=== PATIENT | female | born 1945 | race African-American/Black ===

== ENCOUNTER 2019-12-08 11:58 | Emergency (ER) | payer OTHER ==
[~2019-12-08] VITALS: Ht 165.1 cm; Wt 118.1 kg
--- NOTE | 2019-12-08 12:15 | PHYS DOC ---
Adult General Chief Complaint Chief Complaint: HEADACHE HPI HPI Patient is a 74 year old female who reports with complaint of neck stiffness and a headache that goes up the back of her head to the front and has a sensation of fullness that is been ongoing for the past 2 days. Patient voices history of migraine headaches with similar presentation. No numbness tingling or weakness that is localized. No difficulty with vision or speech. No medications taken prior to arrival. Her symptoms are described as moderate in severity. Of note when the patient talks to me she is moving her neck and what appears to be a normal fashion. Review of Systems Review of Systems All other systems were reviewed and found to be within normal limits, except as documented in this note. Current Medications Current Medications Current Medications Medications (Trade) Dose Ordered Sig/Mariah Start Time Stop Time Status Last Admin Dose Admin Methylprednisolone Sodium Succinate (SOLU-Medrol 125MG VIAL) 125 mg STK-MED ONCE 12/08/19 12:23 12/08/19 12:23 DC Orphenadrine Citrate (Norflex) 60 mg STK-MED ONCE 12/08/19 12:23 12/08/19 12:23 DC Allergies Allergies Allergies Coded Allergies Type Severity Reaction Last Updated Verified No Known Drug Allergies 12/08/19 No Physical Exam Physical Exam Constitutional: Well developed, morbidly obese, no acute distress HENT: Normocephalic, atraumatic, bilateral external ears normal, oropharynx moist, no oral exudates, nose normal. [] Eyes: PERRLA, EOMI, conjunctiva normal, no discharge. [] Neck: No significant tenderness, range of motion appears to be preserved Cardiovascular:Heart rate regular rhythm, no murmur [] Lungs & Thorax: Bilateral breath sounds clear to auscultation [] Abdomen: Bowel sounds normal, soft, no tenderness, no masses, no pulsatile masses. [] Skin: Warm, dry, no erythema, no rash. [] Back: No tenderness, no CVA tenderness. [] Extremities: No tenderness, no cyanosis, no clubbing, ROM intact, no edema. [] Neurologic: Alert and oriented X 3, normal motor function, normal sensory function, no focal deficits noted. [] Current Patient Data Vital Signs Vital Signs Date Time Temp Pulse Resp B/P (MAP) Pulse Ox O2 Delivery O2 Flow Rate FiO2 12/08/19 12:05 98.0 75 18 166/76 (106) 98 Room Air 98.0 EKG EKG [] Radiology/Procedures Radiology/Procedures [] Course & Med Decision Making Course & Med Decision Making Pertinent Labs and Imaging studies reviewed. (See chart for details) 1215: Patient seen for neck pain and headache. Symptoms appear to be consistent with tension migraine so we will start with IM Norflex and Solu-Medrol. 1304: Patient feeling better. Will d/c with flexeril at [facility]. Dragon Disclaimer Dragon Disclaimer This electronic medical record was generated, in whole or in part, using a voice recognition dictation system. Departure Departure Impression: Primary Impression: Tension headache Disposition: HOME, SELF-CARE Condition: IMPROVED Referrals: MILIND RIVERO MD (PCP) Please follow up for ongoing symptoms. Patient Instructions: Tension Headache Scripts Cyclobenzaprine Hcl (CYCLOBENZAPRINE HCL) 10 Mg Tablet 1 TAB PO HS, #10 TAB Prov: YSABEL ALICIA DO 12/08/19 YSABEL ALICIA DO Dec 08, 2019 12:15
[2019-12-08] MEDS ORDERED: methylPREDNISolone SOD SUCC PF 125 MG/2 ML VIAL. ONE (12:23)
[2019-12-08] MEDS ORDERED: ORPHENADRINE CITRATE 60 MG/2 ML VIAL. ONE (12:23)
[2019-12-08] MEDS: methylPREDNISolone SOD SUCC PF 125 MG/2 ML VIAL. IM ONE (12:28)
[2019-12-08] MEDS: ORPHENADRINE CITRATE 60 MG/2 ML VIAL. IM ONE (12:28)
[2019-12-08] MEDS ORDERED: CYCL10TA2 PO (13:06)
[2019-12-08 13:15] VITALS: BP 161/72
== END 2019-12-08 13:20 | disposition home or self-care (01) ==
LOC: ER 11:58
DX: G44.209 Tension-type headache, unspecified, not intractable (principal); G43.909 Migraine, unspecified, not intractable, without status migrainosus; M54.2 Cervicalgia
CPT/HCPCS: 96372; 99284; J2360; J2930

== ENCOUNTER 2019-12-10 09:49 | Emergency (ER) | payer OTHER ==
[~2019-12-10] VITALS: Ht 165.1 cm; Wt 118.0 kg
[~2019-12-10 09:49] MED LIST: CYCL10TA2 PO
[2019-12-10] MEDS ORDERED: diphenhydrAMINE 50 MG/ML VIAL IVP ONE (10:30)
[2019-12-10] MEDS ORDERED: ORPHENADRINE CITRATE 60 MG/2 ML VIAL. IV ONE (10:30)
--- NOTE | 2019-12-10 10:43 | PHYS DOC ---
Past Medical History Past Medical History: High Cholesterol, Hypertension, Migraines, Other Additional Past Medical Histor: Patient is poor historian Past Surgical History: Gastric Bypass, Hip Replacement, Hysterectomy Smoking Status: Never Smoker Alcohol Use: None Adult General Chief Complaint Chief Complaint: HEADACHE HPI HPI Patient is a 74 year old female with history of hypertension, dyslipidemia, migraine headache, gastric bypass, morbid obesity who presents with complaint of headache. Patient complaining of right-sided neck pain with radiation to shoulder and head for the last 4 days as a constant and throbbing pain that getting worse with movement. Patient denies head injury and history of the same problem. Patient was seen in this emergency room on December 07 and treated with diagnosis of tension headache with partial improvement of her condition. Patient denies focal neuro deficit, fever and chills, chest pain, shortness of breath, blurred vision, nausea and vomiting. Patient rated her pain 10/10 and looks very uncomfortable. Review of Systems Review of Systems Constitutional: Denies fever or chills [] Eyes: Denies change in visual acuity, redness, or eye pain [] HENT: Denies nasal congestion or sore throat [] Respiratory: Denies cough or shortness of breath [] Cardiovascular: No additional information not addressed in HPI [] GI: Denies abdominal pain, nausea, vomiting, bloody stools or diarrhea [] : Denies dysuria or hematuria [] Musculoskeletal: Denies back pain or joint pain [] Integument: Denies rash or skin lesions [] Neurologic: Reports headache and neck pain, denies focal weakness or sensory changes [] Endocrine: Denies polyuria or polydipsia [] All other systems were reviewed and found to be within normal limits, except as documented in this note. Current Medications Current Medications Current Medications Medications (Trade) Dose Ordered Sig/Mariah Start Time Stop Time Status Last Admin Dose Admin Diphenhydramine HCl (Benadryl) 50 mg 1X ONCE 12/10/19 10:30 12/10/19 10:31 DC 12/10/19 11:51 50 MG Fentanyl Citrate (Fentanyl 2ml Vial) 50 mcg 1X ONCE 12/10/19 12:45 12/10/19 12:46 DC Ketorolac Tromethamine (Toradol 30mg Vial) 30 mg 1X ONCE 12/10/19 13:15 12/10/19 13:16 DC 12/10/19 13:15 30 MG Orphenadrine Citrate (Norflex) 60 mg 1X ONCE 12/10/19 10:30 12/10/19 10:31 DC 12/10/19 11:50 60 MG Allergies Allergies Allergies Coded Allergies Type Severity Reaction Last Updated Verified No Known Drug Allergies 12/08/19 No Physical Exam Physical Exam Constitutional: Well developed, well nourished, moderate distress, non-toxic appearance. [] HENT: Normocephalic, atraumatic. Eyes: PERRLA, EOMI, conjunctiva normal, no discharge. [] Neck: No midline tenderness, painful range of motion especially in the right side, muscle spasm right paracervical muscle, supple, no meningeal sign, no stridor. [] Cardiovascular:Heart rate regular rhythm, no murmur [] Lungs & Thorax: Bilateral breath sounds clear to auscultation [] Abdomen: Bowel sounds normal, soft, no tenderness, no masses, no pulsatile masses. [] Skin: Warm, dry, no erythema, no rash. [] Back: No tenderness, no CVA tenderness. [] Extremities: No tenderness, no cyanosis, no clubbing, ROM intact, no edema. [] Neurologic: Alert and oriented X 3, no focal deficits noted. [] Psychologic: Affect normal, judgement normal, mood normal. [] Current Patient Data Vital Signs Vital Signs Date Time Temp Pulse Resp B/P (MAP) Pulse Ox O2 Delivery O2 Flow Rate FiO2 12/10/19 13:00 64 17 89 12/10/19 10:16 98.6 179/77 (111) Room Air 98.6 Lab Values Laboratory Tests Test 12/10/19 11:40 12/10/19 12:05 White Blood Count 9.4 x10^3/uL (4.0-11.0) Red Blood Count 2.85 x10^6/uL (3.50-5.40) L Hemoglobin 8.9 g/dL (12.0-15.5) L Hematocrit 27.5 % (36.0-47.0) L Mean Corpuscular Volume 97 fL (79-100) Mean Corpuscular Hemoglobin 31 pg (25-35) Mean Corpuscular Hemoglobin Concent 33 g/dL (31-37) Red Cell Distribution Width 16.3 % (11.5-14.5) H Platelet Count 476 x10^3/uL (140-400) H Neutrophils (%) (Auto) 77 % (31-73) H Lymphocytes (%) (Auto) 16 % (24-48) L Monocytes (%) (Auto) 5 % (0-9) Eosinophils (%) (Auto) 2 % (0-3) Basophils (%) (Auto) 0 % (0-3) Neutrophils # (Auto) 7.2 x10^3/uL (1.8-7.7) Lymphocytes # (Auto) 1.5 x10^3/uL (1.0-4.8) Monocytes # (Auto) 0.5 x10^3/uL (0.0-1.1) Eosinophils # (Auto) 0.1 x10^3/uL (0.0-0.7) Basophils # (Auto) 0.0 x10^3/uL (0.0-0.2) Sodium Level 144 mmol/L (136-145) Potassium Level 3.9 mmol/L (3.5-5.1) Chloride Level 107 mmol/L (98-107) Carbon Dioxide Level 27 mmol/L (21-32) Anion Gap 10 (6-14) Blood Urea Nitrogen 13 mg/dL (7-20) Creatinine 1.0 mg/dL (0.6-1.0) Estimated GFR (Cockcroft-Gault) 65.9 BUN/Creatinine Ratio 13 (6-20) Glucose Level 84 mg/dL (70-99) Calcium Level 9.6 mg/dL (8.5-10.1) Total Bilirubin 0.3 mg/dL (0.2-1.0) Aspartate Amino Transferase (AST) 17 U/L (15-37) Alanine Aminotransferase (ALT) 16 U/L (14-59) Alkaline Phosphatase 108 U/L (46-116) Total Protein 7.4 g/dL (6.4-8.2) Albumin 2.5 g/dL (3.4-5.0) L Albumin/Globulin Ratio 0.5 (1.0-1.7) L Prothrombin Time 15.8 SEC (11.7-14.0) H Prothrombin Time INR 1.3 (0.8-1.1) H Activated Partial Thromboplast Time 39 SEC (24-38) H Lactic Acid Level 0.8 mmol/L (0.4-2.0) Laboratory Tests 12/10/19 11:40 Laboratory Tests 12/10/19 11:40 EKG EKG [] Radiology/Procedures Radiology/Procedures [facility] [address] [place] [address] IMAGING REPORT Signed PATIENT: SKYE MACIEL ACCOUNT: [id number] : 1945 LOCATION: ER AGE: 74 SEX: F EXAM STATUS: REG ER ORD. PHYSICIAN: ALEX MYLES MD REASON: Headache and neck pain PROCEDURE: CT HEAD AND CERVICAL SPINE WO Examination: CT HEAD AND CERVICAL SPINE WO History: Headache and neck pain Comparison/Correlation: 02/04/2005 cervical spine x-ray exam Findings: Axial images of the head and cervical spine were obtained without contrast. Sagittal and coronal reformatted images were provided. Ventricles are normal size. Mild chronic ischemic change of the white matter is present. No midline shift or mass effect. No intracranial hemorrhage. Osteochondromas of the frontal bone are present with no suspicious features. Atlantoaxial joint degenerative remodeling is notable. Reversal of cervical lordosis at C4-5 is notable and appears related to degenerative change. This finding is new since the 2004 x-ray exam. Bony encroachment on neural foramina bilaterally at C4-5 noted with severe narrowing on the left. Bony encroachment is significant bilaterally at C5-6. Multilevel moderate disc space narrowing is present from C5 to T1. Facet joint degenerative subchondral cystic involvement, sclerosis, and narrowing at the right C3-4 level is noted. Degenerative changes otherwise of the facet joints are of a lesser degree. No fracture or bone destruction. Soft tissues of the neck are unremarkable. Levo convexity of the cervical spine is mild. Impression: No intracranial hemorrhage or other suspicious intracranial process. Degenerative changes of the cervical spine of varying severity. Reversal of cervical spine lordosis at C4-5 is evident likely due to degenerative change. PQRS Compliance Statement: One or more of the following individualized dose reduction techniques were utilized for this examination: 1. Automated exposure control 2. Adjustment of the mA and/or kV according to patient size 3. Use of iterative reconstruction technique Electronically signed by: Roman Rose MD (12/10/2019 12:14 PM) [id number] DICTATED and SIGNED BY: ROMAN ROSE MD DATE: 12/10/19 1214 Course & Med Decision Making Course & Med Decision Making Pertinent Labs and Imaging studies reviewed. (See chart for details) Evaluation of patient in ER showed 74-year-old female with complaining of right- sided neck pain with radiation to her head and shoulder getting worse with movement of her head for the last 4 days and had another ER visit [address] head and neck was unremarkable and labs did not show leukocytosis or electrolyte problem. Patient had chronic anemia. Patient was advised to not apply heat on her neck and continue muscle relaxant was given 3 days ago. Patient was advised to hold on tramadol and prescription for [place] was given. Patient treated with Benadryl, Norflex and Toradol with improvement of her pain. I've spoken with the patient and/or caregivers. I've explained the patient's condition, diagnosis and treatment plan based on information available to me at this time. I've answered the patient's and/or caregivers questions and addressed any concerns. The patient and/or caregivers have a good understanding the patient's diagnosis, condition and treatment plan as can be expected at this point. Vital signs have been stabilized. The patient's condition is stable for discharge from the emergency department. The patient will pursue further outpatient evaluation with her primary care provider or other designated consulting physician as outlined in the discharge instructions. Patient and/or caregivers are agreeable to this plan of care and follow-up instructions have been explained in detail. The patient and/or caregivers have received these instructions in written format and expressed understanding of these discharge instructions. The patient and her caregivers are aware that if any significant change in condition or worsening of symptoms should prompt him to immediately return to this of the closest emergency department. If an emergent department is not readily available I would encourage him to call 911. Liliam Disclaimer Liliam Disclaimer This electronic medical record was generated, in whole or in part, using a voice recognition dictation system. Departure Departure Impression: Primary Impression: Acute cervical myofascial strain Additional Impressions: Chronic anemia Morbid obesity Disposition: HOME, SELF-CARE Condition: IMPROVED Referrals: UNKNOWN PCP NAME (PCP) Patient Instructions: Cervical Strain and Sprain with [facility] Additional Instructions: Apply ice on your neck, do not use heat Follow-up with your primary care physician in 2-3 days Return to ER if not getting better Continue home muscle relaxant Scripts Hydrocodone/Apap 5-325 (NORCO 5-325 TABLET) 1 Each Tablet 1 TAB PO PRN Q6HRS PRN for PAIN, #15 TAB 0 Refills Prov: ALEX MYLES MD 12/10/19 Problem Qualifiers Primary Impression: Acute cervical myofascial strain Encounter type: initial encounter Qualified Codes: S16.1XXA - Strain of m uscle, fascia and tendon at neck level, initial encounter ALEX MYLES MD Dec 10, 2019 10:42
[2019-12-10 11:53] LABS: BASO % 0 % (0-3); EOS # 0.1 x10^3/uL (0.0-0.7); EOS % 2 % (0-3); HEMATOCRIT 27.5 % (36.0-47.0); HEMOGLOBIN 8.9 g/dL (12.0-15.5); LYMPH # 1.5 x10^3/uL (1.0-4.8); LYMPH % 16 % (24-48); MEAN CORPUSCULAR HEMOGLOBIN 31 pg (25-35); MEAN CORPUSCULAR HGB CONC 33 g/dL (31-37); MEAN CORPUSCULAR VOLUME 97 fL (79-100); MONO # 0.5 x10^3/uL (0.0-1.1); MONO % 5 % (0-9); NEUT # 7.2 x10^3/uL (1.8-7.7); NEUT % 77 % (31-73); PLATELET COUNT 476 x10^3/uL (140-400); RED BLOOD COUNT 2.85 x10^6/uL (3.50-5.40); RED CELL DISTRIBUTION WIDTH 16.3 % (11.5-14.5); WHITE BLOOD COUNT 9.4 x10^3/uL (4.0-11.0)
[2019-12-10 12:04] LABS: CALCIUM 9.6 mg/dL (8.5-10.1); GFR 65.9; POTASSIUM 3.9 mmol/L (3.5-5.1)
[2019-12-10 12:09] LABS: ALBUMIN 2.5 g/dL (3.4-5.0); ALBUMIN/GLOBULIN RATIO 0.5 (1.0-1.7); TOTAL BILIRUBIN 0.3 mg/dL (0.2-1.0); TOTAL PROTEIN 7.4 g/dL (6.4-8.2)
--- NOTE | 2019-12-10 12:16 | RAD ---
Examination: CT HEAD AND CERVICAL SPINE WO History: Headache and neck pain Comparison/Correlation: 02/04/2005 cervical spine x-ray exam Findings: Axial images of the head and cervical spine were obtained without contrast. Sagittal and coronal reformatted images were provided. Ventricles are normal size. Mild chronic ischemic change of the white matter is present. No midline shift or mass effect. No intracranial hemorrhage. Osteochondromas of the frontal bone are present with no suspicious features. Atlantoaxial joint degenerative remodeling is notable. Reversal of cervical lordosis at C4-5 is notable and appears related to degenerative change. This finding is new since the 2004 x-ray exam. Bony encroachment on neural foramina bilaterally at C4-5 noted with severe narrowing on the left. Bony encroachment is significant bilaterally at C5-6. Multilevel moderate disc space narrowing is present from C5 to T1. Facet joint degenerative subchondral cystic involvement, sclerosis, and narrowing at the right C3-4 level is noted. Degenerative changes otherwise of the facet joints are of a lesser degree. No fracture or bone destruction. Soft tissues of the neck are unremarkable. Levo convexity of the cervical spine is mild. Impression: No intracranial hemorrhage or other suspicious intracranial process. Degenerative changes of the cervical spine of varying severity. Reversal of cervical spine lordosis at C4-5 is evident likely due to degenerative change. PQRS Compliance Statement: One or more of the following individualized dose reduction techniques were utilized for this examination: 1. Automated exposure control 2. Adjustment of the mA and/or kV according to patient size 3. Use of iterative reconstruction technique Electronically signed by: Roman Zamorano MD (12/10/2019 12:14 PM) [id number]
[2019-12-10 12:42] LABS: PROTHROMBIN TIME PATIENT 15.8 SEC (11.7-14.0)
[2019-12-10] MEDS ORDERED: fentaNYL PF VIAL 100 MCG/2 ML VIAL IVP ONE (12:45)
[2019-12-10 13:00] VITALS: BP 186/80
[2019-12-10] MEDS ORDERED: KETOROLAC 30 MG/ML VIAL. IVP ONE (13:15)
[2019-12-10] MEDS ORDERED: HYDR-3164 PO (13:16)
== END 2019-12-10 14:44 | disposition home or self-care (01) ==
LOC: ER 09:49
DX: S16.1XXA Strain of muscle, fascia and tendon at neck level, initial encounter (principal); D50.0 Iron deficiency anemia secondary to blood loss (chronic); E66.01 Morbid (severe) obesity due to excess calories; Z68.41 Body mass index [BMI] 40.0-44.9, adult; G43.909 Migraine, unspecified, not intractable, without status migrainosus; E78.00 Pure hypercholesterolemia, unspecified; I10 Essential (primary) hypertension; X58.XXXA Exposure to other specified factors, initial encounter; Y93.89 Activity, other specified; Y92.89 Other specified places as the place of occurrence of the external cause; Y99.8 Other external cause status
CPT/HCPCS: 36415; 70450; 72125; 80053; 83605; 85025; 85610; 85730; 96374; 96375; 99285; J1200; J1885; J2360